=== PATIENT | female | born 1940 | race Caucasian/White ===

== ENCOUNTER 2020-02-29 16:43 | Emergency (ER) | payer OTHER ==
[2020-02-29 17:33] LABS: Absolute Lymphocytes (CBC) 1.1 K/uL (0.7-4.9); Basophils % 0.8 % (0-1.3); Hematocrit 33.8 % (36.0-45.0); Lymphocytes % 11.9 % (15.3-44.8); MPV 8.6 fL (7.6-11.3); RBC Red Blood Cell Count 3.79 M/uL (3.86-4.86)
[2020-02-29] MEDS ORDERED: MORPHINE 2 MG/ML SYR ONE ×4 (17:38→21:42)
[2020-02-29] MEDS ORDERED: ONDANSETRON 4 MG/2 ML VIAL ONE (17:39)
[2020-02-29 18:00] LABS: ALT/SGPT 19 U/L (12-78); AST/SGOT 14 U/L (15-37); Albumin 3.3 g/dL (3.4-5.0); Alkaline Phosphatase 74 U/L (45-117); BUN Blood Urea Nitrogen 36 mg/dL (7-18); Bicarbonate 26 mmol/L (21-32); Bilirubin Direct 0.1 mg/dL (0-0.2); Bilirubin Total 0.4 mg/dL (0.2-1.0); Glucose Level 118 mg/dL (74-106); Magnesium 2.1 mg/dL (1.8-2.4); NT PRO-BNP 1150 pg/mL (<450); Potassium 4.2 mmol/L (3.5-5.1); Protein, Total 6.9 g/dL (6.4-8.2); Sodium Level 140 mmol/L (136-145); Troponin (Emerg Dept Use Only) < 0.02 ng/mL (0.0-0.045)
[2020-02-29] MEDS ORDERED: NA CHLORIDE 0.9% 1,000 ML ONE (18:01)
--- NOTE | 2020-02-29 18:15 | EDPHYS ---
Physician Documentation [facility] Name: Geneva Casey Age: 79 yrs Sex: Female : 1940 Arrival Date: 02/29/2020 Time: 16:48 Bed 5 Private MD: ED Physician Andrew Robles HPI: 02/28 17:08 This 79 yrs old Female presents to ER via EMS with complaints of Shoulder marvin Pain, Hip Pain, Fall Injury. 17:08 The patient or guardian complains of decreased range of motion, an injury. left marvin shoulder. Context: The problem was sustained at home, resulted from a fall. Onset: The symptoms/episode began/occurred just prior to arrival. Modifying factors: the symptoms are alleviated by remaining still, The symptoms are aggravated by movement. Associated signs and symptoms: The patient has no apparent associated signs or symptoms. Severity of symptoms: At their worst the symptoms were moderate, in the emergency department the symptoms are unchanged. The patient has not experienced similar symptoms in the past. Historical: - Allergies: 19:50 Codeine; ls4 19:50 Demerol; ls4 - Home Meds: 20:07 amlodipine 2.5 mg tab 1 tab twice a day [Active]; aspirin 81 mg oral TbEC 1 tab every ls4 three days [Active]; Toprol XL 25 mg Oral Tb24 .5 tab once daily [Active]; Xarelto 15 mg oral tab daily [Active]; simvastatin 40 mg Oral tab 1 tab nightly [Active]; isosorbide dinitrate 30 mg Oral tab 1 tab daily [Active]; Bumex Oral 0.5 mg daily [Active]; septane opth drops four times a day [Active]; Systane Gel ophthalmic ophthalmic nightly [Active]; - PMHx: 20:02 Atrial Fib; Hyperlipidemia; Hypertension; mt2 - Immunization history: Last tetanus immunization: unknown. - Family history:: not pertinent. - Social history:: Smoking status: Patient denies any tobacco usage or history of. ROS: 17:08 Constitutional: Negative for fever, chills, and weight loss, Eyes: Negative for injury, marvin pain, redness, and discharge, ENT: Negative for injury, pain, and discharge, Neck: Negative for injury, pain, and swelling, Cardiovascular: Negative for chest pain, palpitations, and edema, Respiratory: Negative for shortness of breath, cough, wheezing, and pleuritic chest pain, Abdomen/GI: Negative for abdominal pain, nausea, vomiting, diarrhea, and constipation, Back: Negative for injury and pain, : Negative for injury, bleeding, discharge, and swelling, Skin: Negative for injury, rash, and discoloration, Neuro: Negative for headache, weakness, numbness, tingling, and seizure, Psych: Negative for depression, anxiety, suicide ideation, homicidal ideation, and hallucinations, Allergy/Immunology: Negative for hives, rash, and allergies, Endocrine: Negative for neck swelling, polydipsia, polyuria, polyphagia, and marked weight changes, Hematologic/Lymphatic: Negative for swollen nodes, abnormal bleeding, and unusual bruising. 17:08 MS/extremity: Positive for decreased range of motion, pain, of the anterior aspect of left shoulder and posterior aspect of left shoulder, LEFT HIP PAIN, ROTATED, FLEXED. Exam: 17:08 Constitutional: This is a well developed, well nourished patient who is awake, alert, marvin and in no acute distress. Head/Face: Normocephalic, atraumatic. Eyes: Pupils equal round and reactive to light, extra-ocular motions intact. Lids and lashes normal. Conjunctiva and sclera are non-icteric and not injected. Cornea within normal limits. Periorbital areas with no swelling, redness, or edema. ENT: Nares patent. No nasal discharge, no septal abnormalities noted. Tympanic membranes are normal and external auditory canals are clear. Oropharynx with no redness, swelling, or masses, exudates, or evidence of obstruction, uvula midline. Mucous membranes moist. Neck: Trachea midline, no thyromegaly or masses palpated, and no cervical lymphadenopathy. Supple, full range of motion without nuchal rigidity, or vertebral point tenderness. No Meningismus. Chest/axilla: Normal chest wall appearance and motion. Nontender with no deformity. No lesions are appreciated. Cardiovascular: Regular rate and rhythm with a normal S1 and S2. No gallops, murmurs, or rubs. Normal PMI, no JVD. No pulse deficits. Respiratory: Lungs have equal breath sounds bilaterally, clear to auscultation and percussion. No rales, rhonchi or wheezes noted. No increased work of breathing, no retractions or nasal flaring. Abdomen/GI: Soft, non-tender, with normal bowel sounds. No distension or tympany. No guarding or rebound. No evidence of tenderness throughout. Back: No spinal tenderness. No costovertebral tenderness. Full range of motion. Skin: Warm, dry with normal turgor. Normal color with no rashes, no lesions, and no evidence of cellulitis. Neuro: Awake and alert, GCS 15, oriented to person, place, time, and situation. Cranial nerves II-XII grossly intact. Motor strength 5/5 in all extremities. Sensory grossly intact. Cerebellar exam normal. Normal gait. Psych: Awake, alert, with orientation to person, place and time. Behavior, mood, and affect are within normal limits. 17:08 Musculoskeletal/extremity: Extremities: noted in the anterior aspect of left shoulder and posterior aspect of left shoulder: decreased ROM, pain, swelling, tenderness, ROM: limited active range of motion, limited passive range of motion, limited active range of motion due to pain, limited passive range of motion due to pain, Circulation is intact in all extremities. Sensation intact. Compartment Syndrome exam of affected extremity: is normal. Joints: the left shoulder and left hip displays deformity, pain at rest, painful range of motion, DVT Exam: no swelling, negative Homans' sign noted on exam, no appreciated bluish discoloration, no erythema, no increased warmth, pain, tenderness. 18:15 ECG was reviewed by the Attending Physician. marvin 19:05 Head/face: Exam is negative for acute changes, obvious evidence of injury or deformity, marvin abrasion(s), contusion, hematoma, swelling, tenderness. Vital Signs: 16:57 BP 154 / 54; Pulse 67; Resp 16; Temp 97.8(TE); Pulse Ox 99% on R/A; Weight 52.16 kg; ls4 Height 5 ft. 4 in. (162.56 cm); Pain 10/10; 18:02 BP 113 / 4; Pulse 68; Resp 18; Temp 97.5(O); Pulse Ox 94% on R/A; mh5 19:15 BP 120 / 41; Pulse 79; Resp 19; Pulse Ox 97% on R/A; Pain 10/10; ls4 20:00 BP 133 / 75; Pulse 76; Resp 16; Pulse Ox 97% on R/A; Pain 8/10; mt2 21:00 BP 119 / 51; Pulse 79; Resp 16; Pulse Ox 96% ; Pain 5/10; mt2 22:09 BP 132 / 52; Pulse 72; Resp 16; Pulse Ox 97% on R/A; Pain 5/10; mt2 16:57 Body Mass Index 19.74 (52.16 kg, 162.56 cm) ls4 María Elena Coma Score: 16:57 Eye Response: spontaneous(4). Verbal Response: oriented(5). Motor Response: obeys ls4 commands(6). Total: 15. Trauma Score (Adult): 16:57 Eye Response: spontaneous(1); Verbal Response: oriented(1); Motor Response: obeys ls4 commands(2); Systolic BP: > 89 mm Hg(4); Respiratory Rate: 10 to 29 per min(4); Carney Score: 15; Trauma Score: 12 MDM: 16:50 Patient medically screened. [facility] 17:12 Differential diagnosis: Anterior dislocation with fracture, Anterior dislocation marvin without fracture, humeral head fracture, glenoid fracture. Data reviewed: vital signs, nurses notes, EMS record, lab test result(s), EKG, radiologic studies, plain films. Data interpreted: behavioral health worker: rate is 67 beats/min, rhythm is regular, Pulse oximetry: on room air is 99 %. Test interpretation: by ED physician or midlevel provider: ECG, plain radiologic studies. Counseling: I had a detailed discussion with the patient and/or guardian regarding: the historical points, exam findings, and any diagnostic results supporting the discharge/admit diagnosis, lab results, radiology results, the need to transfer to another facility, for higher level of care, [facility] does not immediately have the required specialist. 18:08 ED course: no ortho, will send to [facility] [place]. [facility] 02/28 17:08 Order name: Basic Metabolic Panel; Complete Time: 18: [facility] 02/28 17:08 Order name: CBC with Diff; Complete Time: 18: [facility] 02/28 17:08 Order name: LFT's; Complete Time: 18: [facility] 02/28 17:08 Order name: Magnesium; Complete Time: 18: [facility] 02/28 17:08 Order name: NT PRO-BNP; Complete Time: 18: [facility] 02/28 17:08 Order name: Troponin (emerg Dept Use Only); Complete Time: 18:07 [facility] 02/28 17:08 Order name: Shoulder Left (2 View) XRAY; Complete Time: 18:58 [facility] 02/28 17:08 Order name: Pelvis XRAY; Complete Time: 18:58 [facility] 02/28 17:08 Order name: Hip Left 2 View XRAY; Complete Time: 18:58 [facility] 02/28 17:08 Order name: XRAY Chest (1 view); Complete Time: 18:58 [facility] 02/28 17:08 Order name: Urine Culture [facility] 02/28 17:44 Order name: Urine Dipstick--Ancillary (enter results); Complete Time: 18:25 02/28 17:08 Order name: EKG; Complete Time: 17:09 [facility] 02/28 17:08 Order name: Cardiac monitoring; Complete Time: 17:42 [facility] 02/28 17:08 Order name: EKG - Nurse/Tech; Complete Time: 17:42 [facility] 02/28 17:08 Order name: IV Saline Lock; Complete Time: 17:42 [facility] 02/28 17:08 Order name: Labs collected and sent; Complete Time: 17:42 [facility] 02/28 17:08 Order name: O2 Per Protocol; Complete Time: 17:43 [facility] 02/28 17:08 Order name: O2 Sat Monitoring; Complete Time: 17:42 [facility] 02/28 17:08 Order name: Urine Dipstick-Ancillary (obtain specimen); Complete Time: 17:37 [facility] 02/28 17:08 Order name: Roque; Complete Time: 17:37 [facility] 02/28 18:08 Order name: Shoulder Immobilizer; Complete Time: 20:28 [facility] 02/28 18:08 Order name: Ice pack; Complete Time: 19:26 [facility] EC:15 Rate is 69 beats/min. Rhythm is regular. QRS Vancleve is Normal. [place] interval is normal. QRS marvin interval is normal. QT interval is normal. No Q waves. T waves are Normal. No ST changes noted. Clinical impression: Normal ECG and No evidence of ischemia. Interpreted by me. Reviewed by me. Administered Medications: 17:35 Drug: morphine 2 mg Route: IVP; Site: right antecubital; ls4 17:41 Drug: Zofran (Ondansetron) 4 mg Route: IVP; Site: right antecubital; ls4 19:00 Follow up: Response: No adverse reaction; Nausea is decreased ls4 17:42 Drug: NS 0.9% 1000 ml Route: IV; Rate: 125 ml/hr; Site: right antecubital; ls4 22:39 Follow up: IV Status: Completed infusion mt2 18:01 Drug: morphine 2 mg Route: IVP; Site: right antecubital; ls4 19:00 Follow up: Response: No adverse reaction; Pain is unchanged, physician notified ls4 19:27 Drug: morphine 4 mg Route: IVP; Site: right antecubital; ls4 19:45 Follow up: Response: No adverse reaction; Pain is decreased ls4 20:18 Drug: morphine 2 mg Route: IVP; Site: right antecubital; mt2 20:32 Follow up: Response: No adverse reaction; Pain is decreased mt2 21:33 Drug: morphine 2 mg Route: IVP; Site: right antecubital; rv 22:07 Follow up: Response: No adverse reaction; Pain is decreased mt2 Disposition: 02/29/20 18:[address] [facility]. Diagnosis are Fall due to bumping against object, Nondisplaced intertrochanteric fracture of left femur, Pain in left shoulder, Nondisplaced fracture of greater tuberosity of left humerus, Unspecified kidney failure - insufficency, Atrial fibrillation and flutter. - Reason for transfer: Higher level of care. - Accepting physician is to [facility]. - Condition is Stable. - Problem is new. - Symptoms have improved. Signatures: Dispatcher [employer] EDAndrew Taylor MD MD cha Vicente, Ronaldo RN RN Alicia Dillon RN RN ls4 Azalia Quezada RN RN mt2 Corrections: (The following items were deleted from the chart) 18:15 18:15 02/29/2020 18:[address] [facility]. marvin Diagnosis is Fall due to bumping against object; Nondisplaced intertrochanteric fracture of left femur; Pain in left shoulder; Nondisplaced fracture of greater tuberosity of left humerus. Reason for transfer: Higher level of care. Accepting physician is to [facility]. Condition is Stable. Problem is new. Symptoms have improved. marvin 19:03 18:15 02/29/2020 18:[address] [facility]. marvin Diagnosis is Fall due to bumping against object; Nondisplaced intertrochanteric fracture of left femur; Pain in left shoulder; Nondisplaced fracture of greater tuberosity of left humerus; Unspecified kidney failure - insufficency. Reason for transfer: Higher level of care. Accepting physician is to [facility]. Condition is Stable. Problem is new. Symptoms have improved. marvin 22:40 19:03 02/29/2020 18:[address] [facility]. mt2 Diagnosis is Fall due to bumping against object; Nondisplaced intertrochanteric fracture of left femur; Pain in left shoulder; Nondisplaced fracture of greater tuberosity of left humerus; Unspecified kidney failure - insufficency; Atrial fibrillation and flutter. Reason for transfer: Higher level of care. Accepting physician is to [facility]. Condition is Stable. Problem is new. Symptoms have improved. marvin
--- NOTE | 2020-02-29 18:15 | ER ---
Nurse's Notes [facility] Name: Geneva Casey Age: 79 yrs Sex: Female : 1940 Arrival Date: 02/29/2020 Time: 16:48 Bed 5 Private MD: Diagnosis: Fall due to bumping against object;Nondisplaced intertrochanteric fracture of left femur;Pain in left shoulder;Nondisplaced fracture of greater tuberosity of left humerus;Unspecified kidney failure-insufficency;Atrial fibrillation and flutter Presentation: 02/28 16:57 Chief complaint: Patient states: FELL WHILE CLEANING UP FOR THE STORM. FELL ON LEFT HIP ls4 AND LEFT SHOULDER AT THE SAME TIME. I TRIED TO REACH FOR WASHING MACHINE TO BREAK FALL BUT MISSED. Care prior to arrival: Medication(s) given: FENTANYL 100 MG IV. Mechanism of Injury: Fall from standing position. approximately 2 feet. Trauma event details: Injury occurred in the [facility], Injury occurred: at home. Injury occurred: February 29, 2020 Injury occurred at: 15:30. 16:57 Acuity: CATRINA 2 ls4 16:57 Method Of Arrival: EMS: [facility] ls4 19:15 Coronavirus screen: At this time, the client does not indicate any symptoms associated ls4 with coronavirus-19. Ebola Screen: No symptoms or risks identified at this time. Initial Sepsis Screen: Does the patient meet any 2 criteria? No. Patient's initial sepsis screen is negative. Risk Assessment: Do you want to hurt yourself or someone else? Patient reports no desire to harm self or others. Onset of symptoms was February 29, 2020. 19:15 Initial Sepsis Screen: Does the patient have a suspected source of infection? No. ls4 Patient's initial sepsis screen is negative. Trauma Activation: Alert Physician: ED Physician; Name: ; Notified At: ; Arrived At: Physician: General Surgeon; Name: ; Notified At: ; Arrived At: Physician: Radiology; Name: ; Notified At: ; Arrived At: Physician: Respiratory; Name: ; Notified At: ; Arrived At: Physician: Lab; Name: ; Notified At: ; Arrived At: Historical: - Allergies: 19:50 Codeine; ls4 19:50 Demerol; ls4 - Home Meds: 20:07 amlodipine 2.5 mg tab 1 tab twice a day [Active]; aspirin 81 mg oral TbEC 1 tab every ls4 three days [Active]; Toprol XL 25 mg Oral Tb24 .5 tab once daily [Active]; Xarelto 15 mg oral tab daily [Active]; simvastatin 40 mg Oral tab 1 tab nightly [Active]; isosorbide dinitrate 30 mg Oral tab 1 tab daily [Active]; Bumex Oral 0.5 mg daily [Active]; septane opth drops four times a day [Active]; Systane Gel ophthalmic ophthalmic nightly [Active]; - PMHx: 20:02 Atrial Fib; Hyperlipidemia; Hypertension; mt2 - Immunization history: Last tetanus immunization: unknown. - Family history:: not pertinent. - Social history:: Smoking status: Patient denies any tobacco usage or history of. Screenin:57 Abuse screen: Denies threats or abuse. Denies injuries from another. Tuberculosis ls4 screening: No symptoms or risk factors identified. 19:15 Nutritional screening: No deficits noted. Fall Risk Fall in past 12 months (25 points). ls4 Primary Survey: 16:57 NO uncontrolled hemorrhage observed. A: The patient is alert. Airway: patent. ls4 Breathing/Chest: Respiratory pattern: regular, Respiratory effort: spontaneous, unlabored, Breath sounds: clear, bilaterally. Chest inspection: symmetrical rise and fall of the chest. Circulation: Cardiac rhythm: sinus rhythm Skin color: pink, Skin temperature: warm. Disability Alert. Exposure/Environment: All clothing and personal items were removed. Forensic evidence collection is not deemed to be indicated at this time. Items placed in patient belonging bag. There is no evidence of uncontrolled external bleeding. Obvious injury(ies) are noted at this time: LEFT SHOULDER AND HIP A warming method has been applied: A warm blanket has been provided to the patient. 19:47 Reassessment Airway Airway Patent Breathing/Chest Respiratory pattern Regular ls4 Circulation Heart rhythm Sinus rhythm Disability Alert. Secondary Survey: 17:05 HEENT: No deficits noted. Gastrointestinal: No deficits noted. : No deficits noted. ls4 No signs and/or symptoms were reported regarding the genitourinary system. Musculoskeletal: Circulation, motion, and sensation intact. Capillary refill < 3 seconds, Range of motion:. Assessment: 16:57 General: Appears uncomfortable, Behavior is cooperative. Pain: Complains of pain in ls4 left hip, anterior aspect of left shoulder and posterior aspect of left shoulder Pain currently is 10 out of 10 on a pain scale. Quality of pain is described as sharp, throbbing, Pain began suddenly, 2 hours ago. Is continuous, Alleviated by Aggravated by repositioning, Noted to be grimacing, guarding, resistant to movement. Neuro: Level of Consciousness is awake, alert, obeys commands. Cardiovascular: No deficits noted. Respiratory: No deficits noted. GI: No deficits noted. No signs and/or symptoms were reported involving the gastrointestinal system. : No deficits noted. No signs and/or symptoms were reported regarding the genitourinary system. Derm: No deficits noted. No signs and/or symptoms reported regarding the dermatologic system. Musculoskeletal: Circulation, motion, and sensation intact. Capillary refill < 3 seconds, Range of motion: intact in left shoulder and left hip Bony deformity noted of anterior aspect of left shoulder. 19:15 Reassessment: Patient and/or family updated on plan of care and expected duration. Pain ls4 level reassessed. Patient is alert, oriented x 3, equal unlabored respirations, skin warm/dry/pink. General: Appears uncomfortable, Behavior is restless. Pain: Complains of pain in left arm and left leg. EENT: No deficits noted. 20:01 Reassessment: attempted to call report to [facility]. mt2 21:00 Reassessment: Patient and/or family updated on plan of care and expected duration. Pain mt2 level reassessed. Patient is alert, oriented x 3, equal unlabored respirations, skin warm/dry/pink. Reassessment: REPORT GIVEN TO MARILUZ TRONCOSO AT [facility]. General: Appears comfortable, Behavior is cooperative. Pain: Complains of pain in pelvis Pain currently is 5 out of 10 on a pain scale. Quality of pain is described as aching. 21:35 Reassessment: patient is complaining of pain. given Morphine IV. vital signs stable. rv updated on the length of wait. 22:08 Reassessment: Patient and/or family updated on plan of care and expected duration. Pain mt2 level reassessed. Patient is alert, oriented x 3, equal unlabored respirations, skin warm/dry/pink. General: Appears comfortable, Behavior is cooperative. Pain: Complains of pain in abdomen Pain currently is 5 out of 10 on a pain scale. Quality of pain is described as aching. 22:15 Reassessment: INFORMED DR. RAMIREZ THAT PT WAS REQUESTING MORE ANALGESIC. PER MD PT HAS mt2 HAD THE MAXIMUM MORPHINE DOSE AT THIS TIME. PAIN MEDS TO BE HELD FOR NOW. 22:30 Reassessment: TRANSFER TEAM REQUESTED ANALGESIC THEY ARE UNABLE TO MEDICATE DURING mt2 TRANSFER. TRANSFER TEAM SPOKE WITH DR. RAMIREZ. PER MD NO PAIN MEDICATIONS AT THIS TIME DUE TO THE MORPHINE DOSAGE PT HAS RECEIVED. Vital Signs: 16:57 BP 154 / 54; Pulse 67; Resp 16; Temp 97.8(TE); Pulse Ox 99% on R/A; Weight 52.16 kg; ls4 Height 5 ft. 4 in. (162.56 cm); Pain 10/10; 18:02 BP 113 / 4; Pulse 68; Resp 18; Temp 97.5(O); Pulse Ox 94% on R/A; mh5 19:15 BP 120 / 41; Pulse 79; Resp 19; Pulse Ox 97% on R/A; Pain 10/10; ls4 20:00 BP 133 / 75; Pulse 76; Resp 16; Pulse Ox 97% on R/A; Pain 8/10; mt2 21:00 BP 119 / 51; Pulse 79; Resp 16; Pulse Ox 96% ; Pain 5/10; mt2 22:09 BP 132 / 52; Pulse 72; Resp 16; Pulse Ox 97% on R/A; Pain 5/10; mt2 16:57 Body Mass Index 19.74 (52.16 kg, 162.56 cm) ls4 María Elena Coma Score: 16:57 Eye Response: spontaneous(4). Verbal Response: oriented(5). Motor Response: obeys ls4 commands(6). Total: 15. Trauma Score (Adult): 16:57 Eye Response: spontaneous(1); Verbal Response: oriented(1); Motor Response: obeys ls4 commands(2); Systolic BP: > 89 mm Hg(4); Respiratory Rate: 10 to 29 per min(4); [place] Score: 15; Trauma Score: 12 ED Course: 16:48 Patient arrived in ED. ss 16:50 Andrew Robles MD is Attending Physician. marvin 16:56 Alicia Kaufman RN is Primary Nurse. ls4 16:57 Patient has correct armband on for positive identification. Bed in low position. Call 4 light in reach. Side rails up X 1. Patient maintains SpO2 saturation greater than 95% on room air. 16:57 Patient maintains SpO2 saturation greater than 95% on room air. ls4 17:00 Triage completed. ls4 17:07 No provider procedures requiring assistance completed. Missed attempt(s): 20 gauge in ls4 right antecubital area. 17:37 Basic Metabolic Panel Sent. 5 17:37 Urine Culture Sent. 5 17:43 XRAY Chest (1 view) Sent. ls4 17:43 Roque cath inserted, using sterile technique, 16 Fr., by fl, balloon inflated, to [facility] gravity drainage, urine specimen collected. 17:45 Urine collected: Roque catheter specimen, clear, Amount Returned: 300mL EKG done, by ED 5 staff, reviewed by Andrew Robles MD. 18:10 Shoulder Left (2 View) XRAY In Process Unspecified. EDMS 18:10 Pelvis XRAY In Process Unspecified. EDMS 18:10 Hip Left 2 View XRAY In Process Unspecified. EDMS 18:10 XRAY Chest (1 view) In Process Unspecified. EDMS 18:58 attempted transfer to [facility]. bd 19:15 Arm band placed on right wrist. ls4 19:15 Thermoregulation: warm blanket given to patient. ls4 21:00 Clavicle/Shoulder strap applied on left clavicle/shoulder. oe 22:40 Patient transferred, IV remains in place. mt2 Administered Medications: 17:35 Drug: morphine 2 mg Route: IVP; Site: right antecubital; ls4 17:41 Drug: Zofran (Ondansetron) 4 mg Route: IVP; Site: right antecubital; ls4 19:00 Follow up: Response: No adverse reaction; Nausea is decreased ls4 17:42 Drug: NS 0.9% 1000 ml Route: IV; Rate: 125 ml/hr; Site: right antecubital; ls4 22:39 Follow up: IV Status: Completed infusion mt2 18:01 Drug: morphine 2 mg Route: IVP; Site: right antecubital; ls4 19:00 Follow up: Response: No adverse reaction; Pain is unchanged, physician notified ls4 19:27 Drug: morphine 4 mg Route: IVP; Site: right antecubital; ls4 19:45 Follow up: Response: No adverse reaction; Pain is decreased ls4 20:18 Drug: morphine 2 mg Route: IVP; Site: right antecubital; mt2 20:32 Follow up: Response: No adverse reaction; Pain is decreased mt2 21:33 Drug: morphine 2 mg Route: IVP; Site: right antecubital; rv 22:07 Follow up: Response: No adverse reaction; Pain is decreased mt2 Intake: 16:57 PO: 0ml; Total: 0ml. ls4 Output: 16:57 Urine: 0ml; Total: 0ml. ls4 Outcome: 18:15 ER care complete, transfer ordered by . marvin 21:23 Patient's length of stay was not longer than 2 hours. mt2 22:39 Transferred to [facility], Transfer form completed. mt2 22:39 Condition: stable 22:39 Instructed on the need for transfer. 22:40 Patient left the ED. mt2 Signatures: Dispatcher [employer] EDMS Ashlyn Goddard Corey, MD MD cha Smirch, Shelby, Marshall Funk RN, Maria Hector Jimenez RN RN rv Stewart, Lisa, RN RN ls4 Azalia Quezada RN RN mt2
[2020-02-29 18:18] LABS: Urine Blood TRACE (NEG); Urine Glucose NEGATIVE (NEG); Urine Protein NEGATIVE (NEG); Urine pH 6.5 (5.0-7.0)
--- NOTE | 2020-02-29 18:36 | RAD REPORT ---
EXAM DESCRIPTION: RAD - Hip Left 2 View - 02/29/2020 6:10 pm CLINICAL HISTORY: PAIN COMPARISON: Pelvis dated 02/29/2020 FINDINGS: AP and frogleg views of the left hip were obtained. No dislocation of the femoral head. No AVN or focal femoral head abnormality. Bones are osteopenic. A n oblique fracture is present through the intertrochanteric portion of the proximal left femur. This is near the base of the femoral neck. No pathologic change. No periarticular mass or hematoma. No soft tissue abnormality. IMPRESSION: Left femur intertrochanteric fracture without distraction or angulation deformity.
--- NOTE | 2020-02-29 18:38 | RAD REPORT ---
EXAM DESCRIPTION: RAD - Shoulder Left 2 View - 02/29/2020 6:10 pm CLINICAL HISTORY: PAIN COMPARISON: No comparisons TECHNIQUE: Internal and external rotation views of the left shoulder were obtained. FINDINGS: No dislocation of the humeral head. No pathologic component. There are faint lucent lines in the metaphyseal portion of the left humerus and in the greater tuberosity where there is subtle co rtical disruption. Findings are considered suspicious for fracture. Acromial humeral joint space is normal. AC joint is normal in appearance. No abnormal soft tissue mark cifications. IMPRESSION: Subtle fracture changes are evident in the greater tuberosity and metaphyseal portion of the proximal left humerus. No distraction or angulation.
--- NOTE | 2020-02-29 18:39 | RAD REPORT ---
EXAM DESCRIPTION: RAD - Pelvis - 02/29/2020 6:10 pm CLINICAL HISTORY: PAIN, fall COMPARISON: No comparisons TECHNIQUE: AP imaging of the pelvis was obtained. FINDINGS: Bones are osteopenic throughout the lower lumbar spine, pelvis and proximal femurs. No acu te lower lumbar or bony pelvic finding identifiable. Sacral ala appear grossly intact. Osteopenic marvin nge does decrease sensitivity. Proximal femur shows no acute finding on the right. An oblique fracture through the intertrochanteric portion of the left femur is present near the junct ion with the neck. No distraction or angulation. No pathologic component. IMPRESSION: Left femur intertrochanteric fracture as detailed. Osteopenic and degenerative change of the pelvis with no acute finding.
--- NOTE | 2020-02-29 18:40 | RAD REPORT ---
EXAM DESCRIPTION: RAD - Chest Single View - 02/29/2020 6:10 pm CLINICAL HISTORY: COUGH, fall COMPARISON: None TECHNIQUE: AP portable chest image was obtained 02/29/2020 6:10 pm . FINDINGS: Lungs are fibrotic as a baseline. No focal pulmonary contusion identifiable. No discrete m ass or focal infiltrate. Chronicity of lung disease could mask edema or infiltrate. Trachea is midlin e. Apical pleural thickening present. Heart and vasculature are normal. No measurable pleural effusio n and no pneumothorax. No acute rib abnormality. Left humerus is separately detailed. No acute aortic findings suspected. IMPRESSION: Prominent interstitial pattern believed to be chronic. This could mask any early edema o r infiltrate. No pneumothorax or pulmonary contusion seen.
[2020-02-29] MEDS ORDERED: MORPHINE 4 MG/ML SYR ONE (19:28)
--- NOTE | 2020-03-01 13:48 | EKG ---
Test Date: 2020-02-29 Test Time: 17:59:24 Measuring Machine Operator: PATI MEASUREMENT RESULTS: Intervals: Rate: 69 IN: 170 QRSD: 80 QT: 410 QTc: 439 [place]: P: 71 IN: 170 QRS: 76 T: 76 INTERPRETIVE STATEMENTS: Normal sinus rhythm Normal ECG No previous ECG available for comparison Electronically Signed On 03-01-20 13:47:48 CDT by Paolo Devlin
[2020-03-04 18:59] VITALS: TEMP 97.5
[2020-03-04 19:05] VITALS: BP 132/52; O2SAT 97
== END 2020-02-29 22:40 | disposition short-term general hospital (02) ==
LOC: ER 16:43
DX: S72.145A Nondisplaced intertrochanteric fracture of left femur, initial encounter for closed fracture (principal); S42.255A Nondisplaced fracture of greater tuberosity of left humerus, initial encounter for closed fracture; M25.512 Pain in left shoulder; N19 Unspecified kidney failure; N28.9 Disorder of kidney and ureter, unspecified; I48.91 Unspecified atrial fibrillation; I48.92 Unspecified atrial flutter; W01.10XA Fall on same level from slipping, tripping and stumbling with subsequent striking against unspecified object, initial encounter; Y93.89 Activity, other specified; Y92.019 Unspecified place in single-family (private) house as the place of occurrence of the external cause; Z88.6 Allergy status to analgesic agent; I10 Essential (primary) hypertension; E78.5 Hyperlipidemia, unspecified
CPT/HCPCS: 96361; 93005; 85025; 87086; 80048; 36415; 83735; 80076; 81003; 84484; 83880; 71045; 72170; 73502; 73030; 51702; 96375; 96374; 99285; J2270 ×4; J7030; J2405; 87088; G0390